=== PATIENT | male | born 1945 | race African-American/Black ===

== ENCOUNTER 2018-08-12 18:14 | Inpatient (IN) | payer OTHER ==
[~2018-08-12] VITALS: Ht 162.6 cm; Wt 61.0 kg
[2018-08-12] MEDS ORDERED: NOREPINEPHRINE 4MG/250ML PMX 250 ML IV ONE ×2 (18:46→21:00)
[2018-08-12] MEDS ORDERED: DEXTROSE 50% WATER 50ML SYRINGE IV ONE ×2 (19:10→20:45)
[2018-08-12 19:43] LABS: CHLORIDE 100 mEq/L (98-107)
[2018-08-12 19:48] LABS: HEMATOCRIT. 37.9 % (42.0-52.0); HEMOGLOBIN. 11.8 g/dL (14.0-18.0); MEAN CORPUSCULAR HEMOGLOBIN 21.8 pg (28.0-32.0); MEAN CORPUSCULAR VOLUME 69.7 fL (80.0-94.0); MEAN PLATELET VOLUME 7.8 fl (7.4-10.4); PLATELET 434 x1000/uL (130-400); RED BLOOD CELL COUNT 5.43 mill/uL (4.7-6.1); RED CELL DISTRIBUTION WIDTH 17.5 % (11.6-14.6)
[2018-08-12] MEDS ORDERED: VECURONIUM BROMIDE 10 MG/VIAL IV ONE (20:00)
[2018-08-12] MEDS ORDERED: NOREPINEPHRINE 4 MG in DEXT 5% WATER 250 ML IV STA (20:26)
[2018-08-12] MEDS ORDERED: SODIUM CHLORIDE 0.9% 1,000 ML IV ONE (20:26)
[2018-08-12 20:29] LABS: CLARITY URINE TURBID (CLEAR); COLOR URINE DARK YELLOW (YELLOW); KETONES URINE TRACE (NEGATIVE); LEUKOCYTE ESTERASE URINE 1+ (NEGATIVE); NITRITE URINE NEGATIVE (NEGATIVE); OCCULT BLOOD URINE 2+ (NEGATIVE); PROTEIN URINE 2+ (NEGATIVE); SPECIFIC GRAVITY URINE 1.023 (1.005-1.030)
[2018-08-12] MEDS ORDERED: SODIUM CHLORIDE 0.9% 1000ML BAG (SEPSIS BOLUS) IV ONE (20:30)
[2018-08-12] MEDS ORDERED: VANCOMYCIN 1 G PREMIX 200 ML IV ONE (20:30)
[2018-08-12] MEDS ORDERED: PIPERACILLIN/TAZ 3.375G PREMIX 50 ML IV ONE (20:30)
[2018-08-12] MEDS ORDERED: ALBUTEROL (0.083%) 2.5MG/3ML NEB HHN ONE (20:45)
[2018-08-12] MEDS ORDERED: DEXT 5%/0.45% NACL 500ML 500 ML IV ONE (20:45)
[2018-08-12] MEDS ORDERED: INSULIN REGULAR (HUMULIN R) 300UNITS/3ML IV ONE (20:45)
[2018-08-12] MEDS ORDERED: SODIUM POLYSTYRENE SULFONATE 15 G/60 ML BOT PO ONE (20:45)
[2018-08-12] MEDS ORDERED: CALCIUM CHLORIDE 1GM/10ML SYR IV ONE (20:45)
[2018-08-12] MEDS ORDERED: SODIUM BICARBONATE 8.4% 1 MEQ/ML 50ML SYR IV ONE (20:45)
[2018-08-12] MEDS ORDERED: NOREPINEPHRINE 4 MG in DEXT 5% WATER 246 ML IV PRN ×2 (21:00→23:30)
[2018-08-12 21:19] LABS: PLATELET ESTIMATE INCREASED
[2018-08-13] VITALS (48 sets, daily range): BP systolic 44–146; BP diastolic 18–119
[2018-08-13] MEDS: NOREPINEPHRINE 4MG/250ML PMX 250 ML IV PRN ×2 (08:44→11:44)
[2018-08-13] MEDS ORDERED: ACETAMINOPHEN 325MG TABLET PO PRN (10:15)
[2018-08-13] MEDS ORDERED: PIPERACILLIN/TAZ 3.375G PREMIX 50 ML IV SCH (10:15)
[2018-08-13] MEDS ORDERED: DEXTROSE 50% WATER 50ML SYRINGE IV PRN (10:15)
[2018-08-13 10:48] LABS: HEMATOCRIT. 35.1 % (42.0-52.0); HEMOGLOBIN. 11.2 g/dL (14.0-18.0); MEAN CORPUSCULAR HEMOGLOBIN 22.5 pg (28.0-32.0); MEAN CORPUSCULAR VOLUME 70.1 fL (80.0-94.0); MEAN PLATELET VOLUME 7.6 fl (7.4-10.4); PLATELET 351 x1000/uL (130-400); RED CELL DISTRIBUTION WIDTH 17.5 % (11.6-14.6)
[2018-08-13 11:14] LABS: PLATELET ESTIMATE NORMAL
[2018-08-13] MEDS ORDERED: SODIUM CHLORIDE 0.9% 1,000 ML IV SCH (11:15)
[2018-08-13] MEDS ORDERED: NICARDIPINE 100 MG in SODIUM CHLORIDE 0.9% 60 ML IV PRN (11:15)
[2018-08-13] MEDS ORDERED: MORPHINE SULFATE 4 MG/ML CPJ (NOT FOR IM USE) IV PRN (11:15)
[2018-08-13] MEDS ORDERED: DEXT 5%/LACTATED RINGERS 1,000 ML IV SCH (11:15)
[2018-08-13 11:28] LABS: INR 1.2; PARTIAL THROMBOPLASTIN TIME 34.7 sec (23.4-31.0); PROTHROMBIN TIME 12.5 sec (9.1-11.1)
[2018-08-13] MEDS ORDERED: PHENYLEPHRINE 40 MG in DEXT 5% WATER 246 ML IV PRN (12:00)
[2018-08-13 12:16] LABS: BG BASE EXCESS -10.4 mmol/L (-2.0-2.0); BG CARBOXYHEMOGLOBIN 0.3 % (0.5-1.5); BG DEOXYHEMOGLOBIN 3.3 % (0.0-5.0); BG HCO3 ACT 13.8 mmol/L (22.0-26.0); BG METHEMOGLOBIN 0.2 % (0.0-1.5); BG OXYGEN SATURATION 96.7 % (92.0-98.5); BG OXYHEMOGLOBIN 96.2 % (94.0-97.0); BG PCO2 26.3 mmHg (35.0-45.0); BG PH 7.339 (7.350-7.450); BG PO2 90.2 mmHg (75.0-100.0); BG SAMPLE SITE LEFT RADIAL; BG VENT MODE ROOM AIR
[2018-08-13] MEDS ORDERED: BLOOD SUGAR DIAGNOSTIC STRIP TEST SCH (13:00)
[2018-08-13] MEDS ORDERED: INSULIN LISPRO 100 UNITS/ML SUBCUT SCH (13:20)
[2018-08-13] MEDS: PHENYLEPHRINE 40 MG in DEXT 5% WATER 246 ML IV PRN ×3 (13:26→22:26)
[2018-08-13] MEDS ORDERED: SODIUM BICARBONATE 75 MEQ in SODIUM CHLORIDE 0.45% 1,000 ML IV ONE (13:30)
[2018-08-13] MEDS ORDERED: PANTOPRAZOLE SODIUM 40 MG/VIAL IV ONE (13:45)
[2018-08-13] MEDS ORDERED: NOREPINEPHRINE 16 MG in DEXT 5% WATER 234 ML IV PRN (14:00)
[2018-08-13] MEDS ORDERED: PANTOPRAZOLE 80 MG in SODIUM CHLORIDE 0.9% 100 ML IV SCH (14:00)
[2018-08-13] MEDS: CITRIC ACID/SODIUM CITRATE SOLN 30ML UDC PO SCH ×2 (14:03→18:19)
[2018-08-13] MEDS: DEXAMETHASONE 4MG/ML 1ML VIAL IV SCH ×2 (14:03→21:30)
[2018-08-13] MEDS ORDERED: LIDOCAINE HCL/PF 1% 2ML VIAL ONE (14:31)
[2018-08-13] MEDS: PIPERACILLIN/TAZ 2.25G PREMIX 50 ML IV SCH (14:35)
[2018-08-13] MEDS ORDERED: VANCOMYCIN 750 MG PREMIX 150 ML IV NR (15:00)
[2018-08-13] MEDS: PANTOPRAZOLE 80 MG in SODIUM CHLORIDE 0.9% 100 ML IV SCH (15:52)
[2018-08-13 16:50] LABS: CLARITY URINE TURBID (CLEAR); COLOR URINE YELLOW (YELLOW); KETONES URINE NEGATIVE (NEGATIVE); LEUKOCYTE ESTERASE URINE 1+ (NEGATIVE); NITRITE URINE NEGATIVE (NEGATIVE); OCCULT BLOOD URINE 3+ (NEGATIVE); PROTEIN URINE 1+ (NEGATIVE); SPECIFIC GRAVITY URINE 1.012 (1.005-1.030); UROBILINOGEN URINE 0.2 E.U./dL (0.2-1.0)
[2018-08-13] MEDS ORDERED: LEVETIRACETAM 500MG PREMIX 100 ML IV SCH (17:00)
[2018-08-13] MEDS: SODIUM BICARBONATE 75 MEQ in SODIUM CHLORIDE 0.45% 1,000 ML IV SCH (17:50)
[2018-08-13] MEDS ORDERED: SORBITOL 70% SOLN 30ML PO NR (18:00)
[2018-08-13] MEDS: SORBITOL 70% SOLN 30ML PO NR (18:20)
[2018-08-13] MEDS ORDERED: PANTOPRAZOLE SODIUM 40 MG/VIAL IV SCH (21:00)
[2018-08-13] MEDS ORDERED: LEVETIRACETAM 500MG in SODIUM CHLORIDE 0.9% 100ML IV SCH (21:00)
[2018-08-13 23:08] LABS: HEMATOCRIT 31.7 % (42.0-52.0); HEMOGLOBIN 10.1 g/dL (14.0-18.0)
[2018-08-13] MEDS: LEVETIRACETAM 500MG in SODIUM CHLORIDE 0.9% 100ML IV SCH (23:34)
[2018-08-14] VITALS (103 sets, daily range): BP systolic 64–126; BP diastolic 43–85
[2018-08-14] MEDS: PANTOPRAZOLE 80 MG in SODIUM CHLORIDE 0.9% 100 ML IV SCH ×2 (01:00→09:46)
[2018-08-14] MEDS: PIPERACILLIN/TAZ 2.25G PREMIX 50 ML IV SCH ×3 (01:48→20:16)
[2018-08-14] MEDS: SODIUM BICARBONATE 75 MEQ in SODIUM CHLORIDE 0.45% 1,000 ML IV SCH ×3 (01:48→17:54)
[2018-08-14] MEDS: PHENYLEPHRINE 40 MG in DEXT 5% WATER 246 ML IV PRN ×4 (03:06→18:53)
[2018-08-14 05:40] LABS: HEMATOCRIT. 30.7 % (42.0-52.0); HEMOGLOBIN. 9.9 g/dL (14.0-18.0); MEAN CORPUSCULAR HEMOGLOBIN 22.4 pg (28.0-32.0); MEAN CORPUSCULAR VOLUME 69.5 fL (80.0-94.0); MEAN PLATELET VOLUME 7.7 fl (7.4-10.4); PLATELET 297 x1000/uL (130-400); RED BLOOD CELL COUNT 4.41 mill/uL (4.7-6.1); RED CELL DISTRIBUTION WIDTH 17.4 % (11.6-14.6)
[2018-08-14 05:48] LABS: INR 1.2; PROTHROMBIN TIME 11.8 sec (9.1-11.1)
[2018-08-14 06:12] LABS: CHLORIDE 105 mEq/L (98-107)
[2018-08-14] MEDS: DEXAMETHASONE 4MG/ML 1ML VIAL IV SCH ×3 (06:18→21:07)
[2018-08-14] MEDS: SORBITOL 70% SOLN 30ML PO NR (06:18)
[2018-08-14 06:19] LABS: PHOSPHORUS 3.9 mg/dL (2.5-4.9)
[2018-08-14 06:20] LABS: TOTAL IRON BINDING CAPACITY 198 ug/dL (250-450)
[2018-08-14] MEDS: LEVETIRACETAM 500MG in SODIUM CHLORIDE 0.9% 100ML IV SCH ×2 (08:42→21:07)
[2018-08-14 13:30] LABS: ATYPICAL LYMPHOCYTES 1
[2018-08-14 13:31] LABS: PLATELET ESTIMATE NORMAL
[2018-08-14] MEDS ORDERED: IPRATROPIUM/ALBUTEROL 0.5-3(2.5)MG/3ML NEB HHN PRN (13:45)
[2018-08-14] MEDS ORDERED: SODIUM CHLORIDE 0.9% 1,000 ML IV NR (14:01)
[2018-08-14] MEDS ORDERED: SIMETHICONE 40 MG/0.6 ML 30ML ONE ×2 (14:54→15:03)
[2018-08-14] MEDS ORDERED: BACTERIOSTATIC SODIUM CHLORIDE 0.9% 30ML VIAL IJ ONE (14:54)
[2018-08-14] MEDS ORDERED: SODIUM CHLORIDE 10% FOR INH 15ML VIAL NEB INH SCH (15:00)
[2018-08-14] MEDS ORDERED: MIDAZOLAM HCL 5 MG/5 ML VIAL ONE (15:03)
[2018-08-14] MEDS ORDERED: FENTANYL CITRATE/PF 50MCG/ML 2ML VIAL ONE (15:04)
[2018-08-14] MEDS ORDERED: MIDAZOLAM HCL 2 MG/2 ML VIAL IV PRN (15:20)
[2018-08-14] MEDS: ONDANSETRON HCL 4MG/2ML INJ IV PRN (16:12)
[2018-08-14] MEDS: ACETYLCYSTEINE 100MG/ML 10% VIAL 4ML INH SCH (16:31)
[2018-08-14] MEDS: IPRATROPIUM/ALBUTEROL 0.5-3(2.5)MG/3ML NEB HHN SCH (16:31)
[2018-08-14 17:27] LABS: BG BASE EXCESS -2.2 mmol/L (-2.0-2.0); BG CARBOXYHEMOGLOBIN 0.3 % (0.5-1.5); BG DEOXYHEMOGLOBIN 2.6 % (0.0-5.0); BG HCO3 ACT 21.6 mmol/L (22.0-26.0); BG METHEMOGLOBIN 0.2 % (0.0-1.5); BG OXYGEN SATURATION 97.4 % (92.0-98.5); BG OXYHEMOGLOBIN 96.9 % (94.0-97.0); BG PCO2 33.4 mmHg (35.0-45.0); BG PH 7.428 (7.350-7.450); BG SAMPLE SITE RIGHT RADIAL; BG VENT MODE NASAL CANNULA
[2018-08-14] MEDS: PANTOPRAZOLE SODIUM 40 MG/VIAL IV SCH (17:53)
[2018-08-14] MEDS ORDERED: PHENYLEPHRINE 80 MG in DEXT 5% WATER 492 ML IV PRN (22:07)
[2018-08-15] VITALS (92 sets, daily range): BP systolic 89–125; BP diastolic 48–93
[2018-08-15] MEDS: IPRATROPIUM/ALBUTEROL 0.5-3(2.5)MG/3ML NEB HHN SCH ×6 (00:48→20:45)
[2018-08-15] MEDS: ACETYLCYSTEINE 100MG/ML 10% VIAL 4ML INH SCH ×4 (00:49→17:39)
[2018-08-15] MEDS: SODIUM BICARBONATE 75 MEQ in SODIUM CHLORIDE 0.45% 1,000 ML IV SCH (04:56)
[2018-08-15] MEDS: PIPERACILLIN/TAZ 2.25G PREMIX 50 ML IV SCH ×3 (04:56→20:59)
[2018-08-15] MEDS: DEXAMETHASONE 4MG/ML 1ML VIAL IV SCH ×3 (05:29→21:39)
[2018-08-15] MEDS: PANTOPRAZOLE SODIUM 40 MG/VIAL IV SCH ×2 (05:29→17:17)
[2018-08-15 06:23] LABS: HEMATOCRIT. 26.5 % (42.0-52.0); HEMOGLOBIN. 8.6 g/dL (14.0-18.0); MEAN CORPUSCULAR HEMOGLOBIN 22.4 pg (28.0-32.0); MEAN PLATELET VOLUME 7.9 fl (7.4-10.4); PLATELET 253 x1000/uL (130-400); RED BLOOD CELL COUNT 3.84 mill/uL (4.7-6.1)
[2018-08-15 06:45] LABS: PHOSPHORUS 4.2 mg/dL (2.5-4.9)
[2018-08-15 07:19] LABS: IMMUNOGLOBULIN A 229 mg/dL (61-437); IMMUNOGLOBULIN G 956 mg/dL (700-1600); IMMUNOGLOBULIN M 30 mg/dL (15-143)
[2018-08-15 08:18] LABS: PLATELET ESTIMATE NORMAL
[2018-08-15] MEDS: SODIUM CHLORIDE 0.45% 1,000 ML IV SCH ×2 (08:44→17:17)
[2018-08-15] MEDS: LEVETIRACETAM 500MG in SODIUM CHLORIDE 0.9% 100ML IV SCH ×2 (08:45→21:39)
[2018-08-15 08:59] LABS: BG BASE EXCESS 0.8 mmol/L (-2.0-2.0); BG CARBOXYHEMOGLOBIN 0.1 % (0.5-1.5); BG DEOXYHEMOGLOBIN 2.1 % (0.0-5.0); BG FRACTION INSPIRED OXYGEN 28; BG HCO3 ACT 24.7 mmol/L (22.0-26.0); BG METHEMOGLOBIN 0.6 % (0.0-1.5); BG OXYGEN SATURATION 97.9 % (92.0-98.5); BG OXYHEMOGLOBIN 97.2 % (94.0-97.0); BG PCO2 36.3 mmHg (35.0-45.0); BG PH 7.451 (7.350-7.450); BG PO2 110.8 mmHg (75.0-100.0); BG SAMPLE SITE RIGHT BRACHIAL; BG TOTAL HEMOGLOBIN 8.3 g/dL (12.0-18.0); BG VENT MODE NASAL CANNULA
[2018-08-15] MEDS ORDERED: ALBUMIN HUMAN 25GM/100ML (25%) IV NR (10:00)
[2018-08-15] MEDS: ONDANSETRON HCL 4MG/2ML INJ IV PRN (13:31)
[2018-08-15] MEDS ORDERED: VANCOMYCIN 750 MG PREMIX 150 ML IV SCH (15:00)
[2018-08-16] VITALS (64 sets, daily range): BP systolic 84–119; BP diastolic 42–100
[2018-08-16] MEDS: IPRATROPIUM/ALBUTEROL 0.5-3(2.5)MG/3ML NEB HHN SCH ×7 (00:51→23:59)
[2018-08-16] MEDS: ACETYLCYSTEINE 100MG/ML 10% VIAL 4ML INH SCH ×4 (00:52→23:59)
[2018-08-16] MEDS: PIPERACILLIN/TAZ 2.25G PREMIX 50 ML IV SCH ×3 (03:24→21:09)
[2018-08-16] MEDS: SODIUM CHLORIDE 0.45% 1,000 ML IV SCH ×2 (03:24→15:01)
[2018-08-16] MEDS: DEXAMETHASONE 4MG/ML 1ML VIAL IV SCH ×2 (05:36→13:39)
[2018-08-16] MEDS: PANTOPRAZOLE SODIUM 40 MG/VIAL IV SCH ×2 (05:36→17:08)
[2018-08-16 06:34] LABS: MEAN CORPUSCULAR HEMOGLOBIN 22.1 pg (28.0-32.0); MEAN CORPUSCULAR VOLUME 68.5 fL (80.0-94.0); MEAN PLATELET VOLUME 7.5 fl (7.4-10.4); PLATELET 202 x1000/uL (130-400); RED BLOOD CELL COUNT 3.19 mill/uL (4.7-6.1)
[2018-08-16 06:49] LABS: HEMATOCRIT. 21.8 % (42.0-52.0)
[2018-08-16 07:41] LABS: PLATELET ESTIMATE NORMAL
[2018-08-16] MEDS: LEVETIRACETAM 500MG in SODIUM CHLORIDE 0.9% 100ML IV SCH ×2 (08:49→21:09)
[2018-08-16] MEDS: MIDODRINE HCL 5MG TABLET PO SCH ×3 (13:39→17:08)
[2018-08-16] MEDS ORDERED: POTASSIUM CHLORIDE INJ 40 MEQ in DEXT 5% WATER 250 ML IV NR (15:00)
[2018-08-16] MEDS ORDERED: MORPHINE SULFATE 4 MG/ML CPJ (NOT FOR IM USE) IV PRN (15:15)
[2018-08-16 20:27] LABS: HEMATOCRIT 30.7 % (42.0-52.0); HEMOGLOBIN 9.7 g/dL (14.0-18.0)
[2018-08-17] VITALS (39 sets, daily range): BP systolic 86–125; BP diastolic 31–83
[2018-08-17] MEDS: SODIUM CHLORIDE 0.45% 1,000 ML IV SCH (00:15)
[2018-08-17] MEDS: IPRATROPIUM/ALBUTEROL 0.5-3(2.5)MG/3ML NEB HHN SCH ×2 (03:36→09:25)
[2018-08-17] MEDS: PIPERACILLIN/TAZ 2.25G PREMIX 50 ML IV SCH (04:50)
[2018-08-17 05:51] LABS: HEMATOCRIT. 28.7 % (42.0-52.0); HEMOGLOBIN. 9.3 g/dL (14.0-18.0); MEAN CORPUSCULAR HEMOGLOBIN 23.7 pg (28.0-32.0); MEAN CORPUSCULAR VOLUME 73.1 fL (80.0-94.0); MEAN PLATELET VOLUME 7.3 fl (7.4-10.4); PLATELET 184 x1000/uL (130-400); RED BLOOD CELL COUNT 3.93 mill/uL (4.7-6.1); RED CELL DISTRIBUTION WIDTH 20.3 % (11.6-14.6)
[2018-08-17 06:03] LABS: PHOSPHORUS 3.5 mg/dL (2.5-4.9)
[2018-08-17] MEDS: PANTOPRAZOLE SODIUM 40 MG/VIAL IV SCH ×2 (06:20→17:46)
[2018-08-17 08:46] LABS: PLATELET ESTIMATE NORMAL
[2018-08-17] MEDS: LEVETIRACETAM 500MG in SODIUM CHLORIDE 0.9% 100ML IV SCH ×2 (09:14→21:27)
[2018-08-17] MEDS: MIDODRINE HCL 5MG TABLET PO SCH ×3 (09:14→17:46)
[2018-08-17] MEDS: DEXT 5%/0.2% NACL 1,000 ML IV SCH ×2 (09:36→19:30)
[2018-08-17] MEDS ORDERED: MAGNESIUM 2 G PREMIX 50 ML IV SCH (10:30)
[2018-08-17] MEDS ORDERED: POTASSIUM CHLORIDE INJ 40 MEQ in DEXT 5% WATER 250 ML IV SCH (10:30)
[2018-08-17] MEDS ORDERED: LEVOFLOXACIN 750MG PREMIX 150 ML IV SCH (14:00)
[2018-08-17] MEDS: ACETYLCYSTEINE 100MG/ML 10% VIAL 4ML INH SCH (17:04)
[2018-08-17] MEDS: IPRATROPIUM BROMIDE (0.02%) 0.5MG/2.5ML NEB HHN SCH ×2 (17:04→20:00)
[2018-08-18] VITALS (36 sets, daily range): BP systolic 89–129; BP diastolic 47–99
[2018-08-18] MEDS: ACETYLCYSTEINE 100MG/ML 10% VIAL 4ML INH SCH ×2 (00:32→08:50)
[2018-08-18] MEDS: IPRATROPIUM BROMIDE (0.02%) 0.5MG/2.5ML NEB HHN SCH ×3 (04:00→08:00)
[2018-08-18] MEDS: PANTOPRAZOLE SODIUM 40 MG/VIAL IV SCH (05:13)
[2018-08-18] MEDS ORDERED: DEXT 5%/0.2% NACL 1,000 ML IV SCH (05:15)
[2018-08-18 05:21] LABS: HEMOGLOBIN. 11.3 g/dL (14.0-18.0); MEAN CORPUSCULAR HEMOGLOBIN 23.9 pg (28.0-32.0); MEAN CORPUSCULAR VOLUME 73.7 fL (80.0-94.0); MEAN PLATELET VOLUME 7.3 fl (7.4-10.4); PLATELET 178 x1000/uL (130-400); RED BLOOD CELL COUNT 4.75 mill/uL (4.7-6.1); RED CELL DISTRIBUTION WIDTH 20.2 % (11.6-14.6)
[2018-08-18 05:45] LABS: PHOSPHORUS 2.6 mg/dL (2.5-4.9)
[2018-08-18] MEDS: LEVETIRACETAM 500MG in SODIUM CHLORIDE 0.9% 100ML IV SCH (09:13)
[2018-08-18] MEDS: MIDODRINE HCL 5MG TABLET PO SCH ×2 (09:14→13:44)
[2018-08-18] MEDS ORDERED: BENA20TA10 MT (16:01)
[2018-08-18] MEDS ORDERED: METO-539 MT (16:02)
[2018-08-18] MEDS ORDERED: HYDR25TA MT (16:03)
[2018-08-18 16:30] LABS: PLATELET ESTIMATE NORMAL
== END 2018-08-18 17:30 | disposition hospice, home (50) | DRG 871 ==
LOC: ER 18:14 → MICUNO 20:50 → EDBEDREQTM 20:53 → EDBEDREQ 20:53 → EDBEDREQSVC 20:53 → ENRESERV 08-13 10:53 → MICUNO 08-17 08:31
PROVIDERS: ADMIT Internal Medicine; ATTEND Internal Medicine
PROC: 02HV33Z Insertion of Infusion Device into Superior Vena Cava, Percutaneous Approach (ICD-10-PCS; 2018-08-12)
PROC: 0DB58ZX Excision of Esophagus, Via Natural or Artificial Opening Endoscopic, Diagnostic (ICD-10-PCS; principal; 2018-08-14)
PROC: 0DB68ZX Excision of Stomach, Via Natural or Artificial Opening Endoscopic, Diagnostic (ICD-10-PCS; 2018-08-14)
PROC: 30233N1 Transfusion of Nonautologous Red Blood Cells into Peripheral Vein, Percutaneous Approach (ICD-10-PCS; 2018-08-16)
DX: A41.9 Sepsis, unspecified organism (principal); R65.21 Severe sepsis with septic shock; J96.00 Acute respiratory failure, unspecified whether with hypoxia or hypercapnia; E43 Unspecified severe protein-calorie malnutrition; D65 Disseminated intravascular coagulation [defibrination syndrome]; J18.9 Pneumonia, unspecified organism; K26.4 Chronic or unspecified duodenal ulcer with hemorrhage; K29.71 Gastritis, unspecified, with bleeding; K22.11 Ulcer of esophagus with bleeding; K72.00 Acute and subacute hepatic failure without coma; K85.90 Acute pancreatitis without necrosis or infection, unspecified; N17.9 Acute kidney failure, unspecified; N39.0 Urinary tract infection, site not specified; E87.1 Hypo-osmolality and hyponatremia; J44.0 Chronic obstructive pulmonary disease with (acute) lower respiratory infection; E87.0 Hyperosmolality and hypernatremia; C77.9 Secondary and unspecified malignant neoplasm of lymph node, unspecified; C78.7 Secondary malignant neoplasm of liver and intrahepatic bile duct; C79.70 Secondary malignant neoplasm of unspecified adrenal gland; C34.90 Malignant neoplasm of unspecified part of unspecified bronchus or lung; Z66 Do not resuscitate; E87.5 Hyperkalemia; D50.9 Iron deficiency anemia, unspecified; E11.649 Type 2 diabetes mellitus with hypoglycemia without coma; E83.52 Hypercalcemia; E87.6 Hypokalemia; F17.210 Nicotine dependence, cigarettes, uncomplicated; I27.20 Pulmonary hypertension, unspecified; L89.150 Pressure ulcer of sacral region, unstageable; G93.89 Other specified disorders of brain; J44.9 Chronic obstructive pulmonary disease, unspecified; K44.9 Diaphragmatic hernia without obstruction or gangrene; R62.7 Adult failure to thrive; Z51.5 Encounter for palliative care; Z74.01 Bed confinement status; Z82.49 Family history of ischemic heart disease and other diseases of the circulatory system; Z87.11 Personal history of peptic ulcer disease; Z87.19 Personal history of other diseases of the digestive system; Z68.23 Body mass index [BMI] 23.0-23.9, adult
CPT/HCPCS: 36415; 36600; 70551; 71045; 71250; 74018; 74176; 76770; 80048; 80202; 82270; 82375; 82728; 82784; 82805; 82962; 83036; 83540; 83550; 83605; 83615; 83735; 83880; 83935; 84100; 84134; 84145; 84443; 84484; 84550; 85014; 85018; 85044; 85384; 86334; 86677; 86850; 86900; 86920; 87070; 87077; 87186; 87804; 88305; 88312; 88313; 93005; 93306; 93970; 94640; 94644; 96365; 96375; 99291; A6261; C9113; J1100; J1815; J1953; J1956; J2250; J2370; J2405; J2543; J3010; J3370; J3475; J3480; J3490; J7030; J7040; J7050; J7060; J7131; J7608; J7611; J7620; P9016; P9047